=== PATIENT | female | born 1975 | race African-American/Black ===

== ENCOUNTER 2024-01-03 16:07 | Observation (INO) | payer OTHER ==
--- NOTE | 2024-01-03 16:40 | ED ---
General Adult HPI - General Chief complaint: Weakness Stated complaint: Dizziness, Weakness Time Seen by Provider: 01/03/24 16:18 Source: EMS, RN notes reviewed Mode of arrival: EMS - History of Present Illness Initial comments: 48-year-old female with a reported past medical history significant for dysfunctional uterine bleeding and fibroids presenting to the ED with a chief co mplaint of lightheadedness. Patient reports with her history, she states that she thinks she needs a blood transfusion as she typically gets this on a somewhat regular basis secondary to anemia with history of dysfunctional uterine bleeding. States her last period was earlier this month which she reports was heavy. Patient states that she was inside and reports she was standing up when all of a sudden started to feel lightheaded reporting she felt like she was going to pass out. Also at this time onset of a headache which she describes as a pressure of her head. At this time while lying at rest she reports that she feels improved but is still notes a pressure in her head. Denies chest pain or shortness of breath. Denies fever or chills. Denies abdominal pain. Denies changes in bowel or bladder habits. No other complaints at this time. Of note, patient states that she is in a rehab facility for cocaine abuse. States that she snorts and smoked cocaine. Denies IV drug use. - Related Data Home Medications Medication Instructions Recorded Confirmed Ferrous Sulfate [Feosol] 325 mg PO DAILY 01/03/24 01/03/24 Allergies Allergy/AdvReac Type Severity Reaction Status Date / Time haloperidol [From Haldol] AdvReac lock jaw, Verified 01/03/24 19:47 confusion Review of Systems ROS Statement: Those systems with pertinent positive or pertinent negative responses have been documented in the HPI. ROS Other: All systems not noted in ROS Statement are negative. Past Medical History Additional Past Medical History / Comment(s): Anemia Additional Past Surgical History / Comment(s): c section and hernia repair Smoking Status: Current every day smoker Past Alcohol Use History: Occasional Past Drug Use History: Cocaine, Marijuana General Exam General appearance: alert, in no apparent distress Eye exam: Present: normal appearance, PERRL, EOMI ENT exam: Present: TM's normal bilaterally Neck exam: Present: normal inspection Respiratory exam: Present: normal lung sounds bilaterally Cardiovascular Exam: Present: regular rate GI/Abdominal exam: Present: soft, normal bowel sounds. Absent: distended, tende rness, guarding, rebound, rigid Back exam: Present: normal inspection Neurological exam: Present: alert, oriented X3, CN II-XII intact ([id number]-uo-kqig , [id number]-[id number], rapid alternating hand movements intact.) Skin exam: Present: warm, dry Course Vital Signs 01/03/24 01/03/24 16:11 18:42 Temperature 98.5 F Pulse Rate 94 113 H Respiratory 18 18 Rate Blood Pressure 145/97 122/79 O2 Sat by Pulse 100 99 Oximetry Medical Decision Making - Medical Decision Making Was pt. sent in by a medical professional or institution (, PA, BOOM ST[employer] MAN, urgent care, hospital, or senior care...) When possible be specific @ -No Did you speak to anyone other than the patient for history (EMS, parent, family, police, friend...)? What history was obtained from this source @ -No Did you review nursing and triage notes (agree or disagree)? Why? @ -I reviewed and agree with nursing and triage notes Were old charts reviewed (outside hosp., previous admission, EMS record, old EKG, old radiological studies, urgent care reports/EKG's, senior care records)? Report findings @ -No old charts were reviewed Differential Diagnosis (chest pain, altered mental status, abdominal pain women, abdominal pain men, vaginal bleeding, weakness, fever, dyspnea, syncope, headache, dizziness, GI bleed, back pain, seizure, CVA, palpatations, mental health, musculoskeletal)? @ -Differential Weakness: Hypoglycemia, shock, sepsis, hyponatremia, anemia, infection, NC, ETOH, adverse medicine reaction, overdose, stroke, this is not meant to be an all-inclusive list. EKG interpreted by me (3pts min.). @ -EKG interpreted by me showing a sinus rhythm without acute ST-T wave changes at a rate of 90 bpm. TN 172, QRS 372/421. X-rays interpreted by me (1pt min.). @ -Chest x-ray interpreted by me which revealed no evidence of acute finding. CT interpreted by me (1pt min.). @ -CT brain interpreted me which revealed no evidence of acute finding. U/S interpreted by me (1pt. min.). @ -None done What testing was considered but not performed or refused? (CT, X-rays, U/S, labs)? Why? @ -None What meds were considered but not given or refused? Why? @ -None Did you discuss the management of the patient with other professionals (professionals i.e. , PA, [employer] ST[employer] MAN, lab, RT, psych nurse, oncology social worker, window covering sales consultant, teacher, loan workout officer, case mgr)? Give summary @ -Case discussed with Cassie, who accepts admission under [facility]. Was smoking cessation discussed for >3mins.? @ -No Was critical care preformed (if so, how long)? @ -No Were there social determinants of health that impacted care today? How? (Homelessness, low income, unemployed, alcoholism, drug addiction, transportation, low edu. Level, literacy, decrease access to med. care, skilled nursing, rehab)? @ -No Was there de-escalation of care discussed even if they declined (Discuss DNR or withdrawal of care, Hospice)? DNR status @ -No What co-morbidities impacted this encounter? (DM, HTN, Smoking, COPD, CAD, Cancer, CVA, ARF, Chemo, Hep., AIDS, mental health diagnosis, sleep apnea, morbid obesity)? @ -None Was patient admitted / discharged? Hospital course, mention meds given and route, prescriptions, significant lab abnormalities, going to OR and other pertinent info. @ -Admission 48-year-old female with a past medical history of reported dysfunctional uterine bleeding with fibroids requiring hysterectomy to the ED with complaints of lightheadedness. Reports with her history she typically requires blood transfusion secondary to anemia. States today has been experiencing lightheadedness which she reports is consistent with her history of anemia. Laboratory studies reviewed. CBC significant for hemoglobin of 6.5. Chemistry panel unremarkable. Occult blood unremarkable. Patient will be admitted to observation for transfusion with serial hemoglobin. Undiagnosed new problem with uncertain prognosis? @ -No Drug Therapy requiring intensive monitoring for toxicity (Heparin, Nitro, Insulin, Cardizem)? @ -No Were any procedures done? @ -No Diagnosis/symptom? @ -Anemia Acute, or Chronic, or Acute on Chronic? @ -Acute Uncomplicated (without systemic symptoms) or Complicated (systemic symptoms)? @ -Complicated Side effects of treatment? @ -No Exacerbation, Progression, or Severe Exacerbation? @ -No Poses a threat to life or bodily function? How? (Chest pain, USA, NC, pneumonia, PE, COPD, DKA, ARF, appy, cholecystitis, CVA, Diverticulitis, Homicidal, Suicidal, threat to staff... and all critical care pts) @ -Unlikely - Lab Data Result diagrams: 01/03/24 17:37 01/03/24 17:37 Lab Results 01/03/24 01/03/24 01/03/24 Range/Units 17:37 17:37 17:37 WBC 7.5 (3.8-10.6) k/uL RBC 4.47 (3.80-5.40) m/uL Hgb 6.5 L* (11.4-16.0) gm/dL Hct 26.7 L (34.0-46.0) % MCV 59.8 L (80.0-100.0) fL MCH 14.5 L (25.0-35.0) pg MCHC 24.3 L (31.0-37.0) g/dL RDW 22.6 H (11.5-15.5) % Plt Count 301 (150-450) k/uL MPV 6.6 Neutrophils % 61 % Lymphocytes % 25 % Monocytes % 7 % Eosinophils % 4 % Basophils % 1 % Neutrophils # 4.6 (1.3-7.7) k/uL Lymphocytes # 1.8 (1.0-4.8) k/uL Monocytes # 0.5 (0-1.0) k/uL Eosinophils # 0.3 (0-0.7) k/uL Basophils # 0.0 (0-0.2) k/uL Hypochromasia Marked Poikilocytosis Slight Anisocytosis Moderate Microcytosis Marked PT 10.0 (10.0-12.5) sec INR 0.9 (<1.2) APTT 24.6 (22.0-30.0) sec Sodium 139 (137-145) mmol/L Potassium 4.3 (3.5-5.1) mmol/L Chloride 107 (98-107) mmol/L Carbon Dioxide 25 (22-30) mmol/L Anion Gap 7 mmol/L BUN 9 (7-17) mg/dL Creatinine 0.56 (0.52-1.04) mg/dL Est GFR (CKD-EPI)AfAm >90 (>60 ml/min/1.73 sqM) Est GFR (CKD-EPI)NonAf >90 (>60 ml/min/1.73 sqM) Glucose 99 (74-99) mg/dL Calcium 9.1 (8.4-10.2) mg/dL Magnesium 2.0 (1.6-2.3) mg/dL Total Bilirubin 0.3 (0.2-1.3) mg/dL AST 38 H (14-36) U/L ALT 20 (4-34) U/L Alkaline Phosphatase 78 (38-126) U/L Troponin I (0.000-0.034) ng/mL Total Protein 6.8 (6.3-8.2) g/dL Albumin 4.0 (3.5-5.0) g/dL Stool Occult Blood (Negative) Blood Type Blood Type Confirm Blood Type Recheck Bld Type Recheck Status Antibody Screen Direct Antiglob Test Crossmatch Spec Expiration Date 01/03/24 01/03/24 01/03/24 Range/Units 17:37 17:37 18:41 WBC (3.8-10.6) k/uL RBC (3.80-5.40) m/uL Hgb (11.4-16.0) gm/dL Hct (34.0-46.0) % MCV (80.0-100.0) fL MCH (25.0-35.0) pg MCHC (31.0-37.0) g/dL RDW (11.5-15.5) % Plt Count (150-450) k/uL MPV Neutrophils % % Lymphocytes % % Monocytes % % Eosinophils % % Basophils % % Neutrophils # (1.3-7.7) k/uL Lymphocytes # (1.0-4.8) k/uL Monocytes # (0-1.0) k/uL Eosinophils # (0-0.7) k/uL Basophils # (0-0.2) k/uL Hypochromasia Poikilocytosis Anisocytosis Microcytosis PT (10.0-12.5) sec INR (<1.2) APTT (22.0-30.0) sec Sodium (137-145) mmol/L Potassium (3.5-5.1) mmol/L Chloride (98-107) mmol/L Carbon Dioxide (22-30) mmol/L Anion Gap mmol/L BUN (7-17) mg/dL Creatinine (0.52-1.04) mg/dL Est GFR (CKD-EPI)AfAm (>60 ml/min/1.73 sqM) Est GFR (CKD-EPI)NonAf (>60 ml/min/1.73 sqM) Glucose (74-99) mg/dL Calcium (8.4-10.2) mg/dL Magnesium (1.6-2.3) mg/dL Total Bilirubin (0.2-1.3) mg/dL AST (14-36) U/L ALT (4-34) U/L Alkaline Phosphatase (38-126) U/L Troponin I 0.016 (0.000-0.034) ng/mL Total Protein (6.3-8.2) g/dL Albumin (3.5-5.0) g/dL Stool Occult Blood (Negative) Blood Type O Positive Blood Type Confirm O Positive Blood Type Recheck No Previous Record Bld Type Recheck Status CABO Indicated Antibody Screen POSITIVE Direct Antiglob Test Positive Crossmatch See Detail Spec Expiration Date 01/06/2024 - 234001/03/24 Range/Units 18:41 WBC (3.8-10.6) k/uL RBC (3.80-5.40) m/uL Hgb (11.4-16.0) gm/dL Hct (34.0-46.0) % MCV (80.0-100.0) fL MCH (25.0-35.0) pg MCHC (31.0-37.0) g/dL RDW (11.5-15.5) % Plt Count (150-450) k/uL MPV Neutrophils % % Lymphocytes % % Monocytes % % Eosinophils % % Basophils % % Neutrophils # (1.3-7.7) k/uL Lymphocytes # (1.0-4.8) k/uL Monocytes # (0-1.0) k/uL Eosinophils # (0-0.7) k/uL Basophils # (0-0.2) k/uL Hypochromasia Poikilocytosis Anisocytosis Microcytosis PT (10.0-12.5) sec INR (<1.2) APTT (22.0-30.0) sec Sodium (137-145) mmol/L Potassium (3.5-5.1) mmol/L Chloride (98-107) mmol/L Carbon Dioxide (22-30) mmol/L Anion Gap mmol/L BUN (7-17) mg/dL Creatinine (0.52-1.04) mg/dL Est GFR (CKD-EPI)AfAm (>60 ml/min/1.73 sqM) Est GFR (CKD-EPI)NonAf (>60 ml/min/1.73 sqM) Glucose (74-99) mg/dL Calcium (8.4-10.2) mg/dL Magnesium (1.6-2.3) mg/dL Total Bilirubin (0.2-1.3) mg/dL AST (14-36) U/L ALT (4-34) U/L Alkaline Phosphatase (38-126) U/L Troponin I (0.000-0.034) ng/mL Total Protein (6.3-8.2) g/dL Albumin (3.5-5.0) g/dL Stool Occult Blood Negative (Negative) Blood Type Blood Type Confirm Blood Type Recheck Bld Type Recheck Status Antibody Screen Direct Antiglob Test Crossmatch Spec Expiration Date Disposition Clinical Impression: Anemia Disposition: ADMITTED IP TO THIS [facility] Condition: Good Instructions (If sedation given, give patient instructions): Anemia (ED) Additional Instructions: Please return to the Emergency Department if symptoms worsen or any other concerns. Please follow-up with your primary care provider. Is patient prescribed a controlled substance at d/c from ED?: No Referrals: None,Stated [Primary Care Provider] - 1-2 days Time of Disposition: 21:03
--- NOTE | 2024-01-03 17:08 | XR ---
EXAMINATION TYPE: XR chest 2V DATE OF EXAM: 01/03/2024 5:04 PM CLINICAL INDICATION:Female, 48 years old with history of Chest Pain; [facility] COMPARISON: None TECHNIQUE: XR chest 2V Frontal and lateral views of the chest. FINDINGS: Lungs/Pleura: There is no evidence of pleural effusion, focal consolidation, or pneumothorax. Pulmonary vascularity: Unremarkable. Heart/mediastinum: Cardiomediastinal silhouette is unremarkable. Musculoskeletal: No acute osseous pathology. IMPRESSION: No acute cardiopulmonary disease/process.
[2024-01-03 17:52] LABS: ALT 20 U/L (4-34); AST 38 U/L (14-36); African American GFR (CKD) >90 (>60 ml/min/1.73 sqM); Alkaline Phosphatase 78 U/L (38-126); Anion Gap 7 mmol/L; Blood Urea Nitrogen 9 mg/dL (7-17); Calcium 9.1 mg/dL (8.4-10.2); Carbon Dioxide 25 mmol/L (22-30); Chloride 107 mmol/L (98-107); Glucose 99 mg/dL (74-99); Non-African American GFR(CKD) >90 (>60 ml/min/1.73 sqM); Potassium 4.3 mmol/L (3.5-5.1); Sodium 139 mmol/L (137-145); Total Bilirubin 0.3 mg/dL (0.2-1.3); Total Protein 6.8 g/dL (6.3-8.2)
[2024-01-03 17:55] LABS: INR 0.9 (<1.2); Partial Thromboplastin Time 24.6 sec (22.0-30.0)
--- NOTE | 2024-01-03 18:07 | CT ---
EXAMINATION TYPE: CT brain wo con CT DLP: 1072.4 mGycm, Automated exposure control for dose reduction was used. DATE OF EXAM: 01/03/2024 5:57 PM COMPARISON: None. CLINICAL INDICATION:Female, 48 years old with history of weakness/burciaga, TECHNIQUE: Brain: Axial CT images of the brain were obtained with coronal and sagittal reformats created and rev iewed. Contrast used: None. Oral contrast used: None. FINDINGS: Brain: Extra-axial spaces: No abnormal extra-axial fluid collections. Ventricular system: Within normal limits Cerebral parenchyma: No acute intraparenchymal hemorrhage or mass effect. The velez-white junction is well differentiated. Cerebellum: Unremarkable. Mass effect: No evidence of midline shift. Intracranial vasculature: unremarkable Soft tissues: Normal. Calvarium/osseous structures: No depressed skull fracture. Paranasal sinuses and mastoid air cells: Mild scattered paranasal sinus disease. Visualized orbits: Orbital contents are intact. IMPRESSION: No acute intracranial process.
[2024-01-03 18:25] LABS: Anisocytosis Moderate; Basophils % (A) 1 %; Eosinophils # (A) 0.3 k/uL (0-0.7); Eosinophils % (A) 4 %; HCT 26.7 % (34.0-46.0); Hypochromasia Marked; Lymphocytes # (A) 1.8 k/uL (1.0-4.8); Lymphocytes % (A) 25 %; MCH 14.5 pg (25.0-35.0); MCHC 24.3 g/dL (31.0-37.0); MCV 59.8 fL (80.0-100.0); Mean Platelet Volume 6.6; Microcytosis Marked; Monocytes # (A) 0.5 k/uL (0-1.0); Monocytes % (A) 7 %; Neutrophils # (A) 4.6 k/uL (1.3-7.7); Neutrophils % (A) 61 %; Platelet Count 301 k/uL (150-450); Poikilocytosis Slight; RBC 4.47 m/uL (3.80-5.40); RDW 22.6 % (11.5-15.5); WBC 7.5 k/uL (3.8-10.6)
[2024-01-03 18:29] LABS: HGB 6.5 gm/dL (11.4-16.0)
[2024-01-03] MEDS: SODIUM CHLORIDE 0.9% 500 ML 500 ML IV STA (18:40)
[2024-01-03] MEDS ORDERED: NALOXONE 0.4 MG/ML 1 ML VIAL IV PRN (21:03)
[2024-01-03] MEDS ORDERED: ACETAMINOPHEN TAB 325 MG TAB PO PRN (21:03)
[2024-01-03] MEDS: SODIUM CHLORIDE 0.9% 1,000 ML IV SCH (21:37)
[2024-01-03] MEDS ORDERED: ONDANSETRON 4 MG/2 ML VIAL IVP PRN (23:15)
[2024-01-04 03:59] LABS: Anisocytosis Moderate; Basophils # (A) 0.1 k/uL (0-0.2); Basophils % (A) 1 %; Eosinophils # (A) 0.3 k/uL (0-0.7); Eosinophils % (A) 4 %; HCT 27.5 % (34.0-46.0); Hypochromasia Marked; Lymphocytes # (A) 1.9 k/uL (1.0-4.8); Lymphocytes % (A) 34 %; MCH 14.3 pg (25.0-35.0); MCHC 23.6 g/dL (31.0-37.0); MCV 60.7 fL (80.0-100.0); Mean Platelet Volume 7.2; Microcytosis Marked; Monocytes # (A) 0.4 k/uL (0-1.0); Monocytes % (A) 7 %; Neutrophils % (A) 52 %; Platelet Count 283 k/uL (150-450); Poikilocytosis Slight; RBC 4.53 m/uL (3.80-5.40); RDW 22.7 % (11.5-15.5); WBC 5.7 k/uL (3.8-10.6)
[2024-01-04 05:12] LABS: HGB 6.5 gm/dL (11.4-16.0)
[2024-01-04 05:53] LABS: Ovalocytes Present; RBC Fragments Present; Target Cells Present; Tear Drop Cells Present
[2024-01-04 07:30] VITALS: RESP 18
--- NOTE | 2024-01-04 11:07 | P.HPIM ---
History of Present Illness Patient is a pleasant female came in with complaints of dizziness and near syncope found to have hemoglobin of 6.5 unable to get prior blood transfusion at that time because of presence of multiple antibodies. Awaiting blood from [place]. Patient has menorrhagia patient still has menses and had a 12-day. With heavy bleeding. Patient denies any GI bleed. Patient has severe microcytosis. Patient is from [facility] for cocaine use and did not use cocaine for last 13 days. Denies any IV drug use. Patient does not have any vaginal bleeding today REVIEW OF SYSTEMS: CONSTITUTIONAL: No fever, no malaise, no fatigue. HEENT: No recent visual problems or hearing problems. Denied any sore throat. CARDIOVASCULAR: No chest pain, orthopnea, PND, no palpitations, no syncope. PULMONARY: No shortness of breath, no cough, no hemoptysis. GASTROINTESTINAL: No diarrhea, no nausea, no vomiting, no abdominal pain. NEUROLOGICAL: No headaches, no weakness, no numbness. HEMATOLOGICAL: Denies any bleeding or petechiae. GENITOURINARY: Denies any burning micturition, frequency, or urgency. MUSCULOSKELETAL/RHEUMATOLOGICAL: Denies any joint pain, swelling, or any muscle pain. ENDOCRINE: Denies any polyuria or polydipsia. The rest of the 14-point review of systems is negative. PHYSICAL EXAMINATION: GENERAL: The patient is alert and oriented x3, not in any acute distress. Well developed, well nourished. HEENT: Pupils are round and equally reacting to light. EOMI. No scleral icterus. does have conjunctival pallor. Normocephalic, atraumatic. No pharyngeal erythema. No thyromegaly. CARDIOVASCULAR: S1 and S2 present. No murmurs, rubs, or gallops. PULMONARY: Chest is clear to auscultation, no wheezing or crackles. ABDOMEN: Soft, nontender, nondistended, normoactive bowel sounds. No palpable or ganomegaly. MUSCULOSKELETAL: No joint swelling or deformity. EXTREMITIES: No cyanosis, clubbing, or pedal edema. NEUROLOGICAL: Gross neurological examination did not reveal any focal deficits. SKIN: No rashes. Assessment and plan -Severe symptomatic anemia: Blood transfusion and patient ferritin is probably extremely low will order ferritin but will transfuse ferrous gluconate patient will need more transfusions patient has oral iron supplementation but does not take them regularly on regular basis. Patient will need to follow-up with oncology tomorrow a.m. transfusions and gynecology for dysfunctional uterine bleeding and probably will need oral contraceptive pills Dizziness: Secondary to severe anemia -Dysfunctional uterine bleeding cocaine use history no withdrawals at this time Past Medical History Additional Past Medical History / Comment(s): Anemia Additional Past Surgical History / Comment(s): c section and hernia repair Smoking Status: Current every day smoker Past Alcohol Use History: Occasional Past Drug Use History: Cocaine, Marijuana Medications and Allergies Home Medications Medication Instructions Recorded Confirmed Type Ferrous Sulfate [Feosol] 325 mg PO DAILY 01/03/24 01/03/24 History Allergies Allergy/AdvReac Type Severity Reaction Status Date / Time haloperidol [From Haldol] AdvReac lock jaw, Verified 01/03/24 19:47 confusion Physical Exam Vitals: Vital Signs Temp Pulse Resp BP Pulse Ox 01/04/24 11:00 95 18 135/80 97 01/04/24 10:00 93 18 137/89 100 01/04/24 07:28 94 18 138/91 99 01/04/24 06:00 98 20 142/96 98 01/04/24 04:00 94 18 146/103 99 01/04/24 03:50 94 20 146/103 98 01/04/24 02:46 101 H 18 137/102 100 01/04/24 00:00 109 H 19 154/97 99 01/03/24 22:00 111 H 20 150/97 98 01/03/24 21:00 105 H 16 163/98 98 01/03/24 18:42 113 H 18 122/79 99 01/03/24 16:11 98.5 F 94 18 145/97 100 Intake and Output 01/03/24 01/04/24 01/04/24 22:59 06:59 14:59 Other: Weight 55.338 kg Results CBC & Chem 7: 01/04/24 02:45 01/03/24 17:37 Labs: Abnormal Lab Results - Last 24 Hours (Table) 01/03/24 01/03/24 01/03/24 Range/Units 17:37 17:37 18:41 Hgb 6.5 L* (11.4-16.0) gm/dL Hct 26.7 L (34.0-46.0) % MCV 59.8 L (80.0-100.0) fL MCH 14.5 L (25.0-35.0) pg MCHC 24.3 L (31.0-37.0) g/dL RDW 22.6 H (11.5-15.5) % AST 38 H (14-36) U/L Crossmatch See Detail Blood Bank Comment 01/03/24 01/04/24 Range/Units 20:52 02:45 Hgb 6.5 L* (11.4-16.0) gm/dL Hct 27.5 L (34.0-46.0) % MCV 60.7 L (80.0-100.0) fL MCH 14.3 L (25.0-35.0) pg MCHC 23.6 L (31.0-37.0) g/dL RDW 22.7 H (11.5-15.5) % AST (14-36) U/L Crossmatch See Detail Blood Bank Comment Sent to [facility]
--- NOTE | 2024-01-04 11:08 | P.DS ---
Providers Date of admission: 01/03/24 21:04 Attending physician: Jess Rizo Consults: 01/04/24 11:01 Consult Physician Stat Consulting Provider: Jaclyn Valencia Consult Reason/Comments: Vagnial bleeding and low hgb Do you want consulting provider notified?: Yes Primary care physician: Stated None Hospital Course: Patient is a pleasant female came in with complaints of dizziness and near syncope found to have hemoglobin of 6.5 unable to get prior blood transfusion at that time because of presence of multiple antibodies. Awaiting blood from [facility]. Patient has menorrhagia patient still has menses and had a 12-day. With heavy bleeding. Patient denies any GI bleed. Patient has severe microcytosis. Patient is from [facility] for cocaine use and did not use cocaine for last 13 days. Denies any IV drug use. Patient does not have any vaginal bleeding today PHYSICAL EXAMINATION: GENERAL: The patient is alert and oriented x3, not in any acute distress. Well developed, well nourished. HEENT: Pupils are round and equally reacting to light. EOMI. No scleral icterus. does have conjunctival pallor. Normocephalic, atraumatic. No pharyngeal erythema. No thyromegaly. CARDIOVASCULAR: S1 and S2 present. No murmurs, rubs, or gallops. PULMONARY: Chest is clear to auscultation, no wheezing or crackles. ABDOMEN: Soft, nontender, nondistended, normoactive bowel sounds. No palpable organomegaly. MUSCULOSKELETAL: No joint swelling or deformity. EXTREMITIES: No cyanosis, clubbing, or pedal edema. NEUROLOGICAL: Gross neurological examination did not reveal any focal deficits. SKIN: No rashes. Assessment and plan -Severe symptomatic anemia: Blood transfusion and patient ferritin is probably extremely low will order ferritin but will transfuse ferrous gluconate patient will need more transfusions patient has oral iron supplementation but does not take them regularly on regular basis. Patient will need to follow-up with oncology tomorrow a.m. transfusions and gynecology for dysfunctional uterine bleeding and probably will need oral contraceptive pills Dizziness: Secondary to severe anemia -Dysfunctional uterine bleeding cocaine use history no withdrawals at this time Patient Condition at Discharge: Good Plan - Discharge Summary New Discharge Prescriptions: No Action Ferrous Sulfate [Feosol] 325 mg PO DAILY Discharge Medication List Ferrous Sulfate [Feosol] 325 mg PO DAILY 01/03/24 [History] Follow up Appointment(s)/Referral(s): Jt Sanders [STAFF PHYSICIAN] - 1 Week Lois Bolivar MD [STAFF PHYSICIAN] - 1 Week Jaclyn Valencia DO [Doctor of Osteopathic Medicine] - 1 Week Patient Instructions/Handouts: Anemia (ED) Activity/Diet/Wound Care/Special Instructions: Please return to the Emergency Department if symptoms worsen or any other concer ns. Please follow-up with your primary care provider. Discharge Disposition: HOME SELF-CARE
[2024-01-04] MEDS: SODIUM FERRIC GLUCONAT-SUCROSE 125 MG in SODIUM CHLORIDE 0.9% 100 ML IVPB SCH (12:35)
[2024-01-05 02:21] VITALS: BP 155/95; PULSE 98; TEMP 98.1
== END 2024-01-04 22:50 | disposition home or self-care (01) ==
LOC: EC 16:07 → 6NMEDSUR 21:04
PROVIDERS: ADMIT Internal Medicine; ATTEND Internal Medicine
DX: D62 Acute posthemorrhagic anemia (principal); N93.9 Abnormal uterine and vaginal bleeding, unspecified; F14.11 Cocaine abuse, in remission; Z90.710 Acquired absence of both cervix and uterus
CPT/HCPCS: 36430; 96365; 99285; 36415; 93005; 86900; 86901; 86902; 80053; 82728; 83735; 84484; 85025 ×2; 85610; 85730; 86850; 86920; 86870; 86880; 82272; 71046; 70450; G0378 ×2; P9016; J2916

== ENCOUNTER 2024-01-07 14:02 | Emergency (ER) | payer OTHER ==
[2024-01-07] MEDS: KETOROLAC 15 MG/ML 1 ML VIAL IVP STA (16:14)
[2024-01-07] MEDS: ACETAMINOPHEN IV (For NPO) 1,000 MG in EMPTY BAG 1 BAG IVPB STA (16:18)
[2024-01-07 16:22] LABS: Anisocytosis Marked; Basophils # (A) 0.1 k/uL (0-0.2); Basophils % (A) 1 %; Eosinophils # (A) 0.3 k/uL (0-0.7); Eosinophils % (A) 5 %; HCT 30.2 % (34.0-46.0); Hypochromasia Marked; Lymphocytes # (A) 1.8 k/uL (1.0-4.8); Lymphocytes % (A) 28 %; MCH 16.7 pg (25.0-35.0); MCHC 26.5 g/dL (31.0-37.0); MCV 62.9 fL (80.0-100.0); Mean Platelet Volume 6.3; Microcytosis Marked; Monocytes # (A) 0.5 k/uL (0-1.0); Monocytes % (A) 7 %; Neutrophils # (A) 3.8 k/uL (1.3-7.7); Neutrophils % (A) 58 %; Platelet Count 214 k/uL (150-450); Poikilocytosis Marked; WBC 6.5 k/uL (3.8-10.6)
[2024-01-07 16:25] LABS: ALT 23 U/L (4-34); AST 38 U/L (14-36); African American GFR (CKD) >90 (>60 ml/min/1.73 sqM); Albumin 4.2 g/dL (3.5-5.0); Alkaline Phosphatase 78 U/L (38-126); Anion Gap 6 mmol/L; Blood Urea Nitrogen 10 mg/dL (7-17); Calcium 9.6 mg/dL (8.4-10.2); Carbon Dioxide 25 mmol/L (22-30); Chloride 106 mmol/L (98-107); Glucose 97 mg/dL (74-99); Non-African American GFR(CKD) >90 (>60 ml/min/1.73 sqM); Potassium 4.2 mmol/L (3.5-5.1); Sodium 137 mmol/L (137-145); Total Bilirubin 0.4 mg/dL (0.2-1.3); Total Protein 7.1 g/dL (6.3-8.2)
--- NOTE | 2024-01-07 16:39 | ED ---
General Adult HPI - General Chief complaint: Vaginal Bleeding Stated complaint: Vaginal bleeding Time Seen by Provider: 01/07/24 14:31 Source: patient, EMS, RN notes reviewed Mode of arrival: EMS Limitations: no limitations - History of Present Illness Initial comments: 48-year-old female presents to the emergency department for evaluation of heavy vaginal bleeding and lower abdominal pain. Patient states that she was recently here for a blood transfusion. She states that yesterday she started having vaginal bleeding. She states that at that time she was going through 1 pad an hour. Patient does report that the bleeding has slowed at this time. She reports pain in the lower abdomen/pelvic region. She did see Dr. Valencia yesterday and was advised to follow-up with [facility] Onc specialist she is awaiting an appointment with. she notes that she had a period at the beginning of the month. - Related Data Home Medications Medication Instructions Recorded Confirmed Ferrous Sulfate [Feosol] 325 mg PO DAILY 01/03/24 01/03/24 Previous Rx's Medication Instructions Recorded Acetaminophen Oral Susp [Tylenol] 640 mg PO Q4-6H #150 ml 01/07/24 Ibuprofen Oral Susp [Motrin Oral 400 mg PO Q8HR #150 ml 01/07/24 Susp] Allergies Allergy/AdvReac Type Severity Reaction Status Date / Time haloperidol [From Haldol] AdvReac lock jaw, Verified 01/07/24 14:20 confusion Review of Systems ROS Statement: Those systems with pertinent positive or pertinent negative responses have been documented in the HPI. ROS Other: All systems not noted in ROS Statement are negative. Past Medical History Additional Past Medical History / Comment(s): Anemia, endmetrosis History of Any Multi-Drug Resistant Organisms: None Reported Past Surgical History: Section Additional Past Surgical History / Comment(s): c section and hernia repair Past Psychological History: Anxiety, Bipolar Smoking Status: Current every day smoker Past Alcohol Use History: Occasional Past Drug Use History: Cocaine, Marijuana General Exam Limitations: no limitations General appearance: alert, in no apparent distress Head exam: Present: atraumatic, normocephalic, normal inspection Eye exam: Present: normal appearance, PERRL, EOMI. Absent: scleral icterus, conjunctival injection, periorbital swelling ENT exam: Present: normal exam, mucous membranes moist Neck exam: Present: normal inspection. Absent: tenderness, meningismus, lymphadenopathy Respiratory exam: Present: normal lung sounds bilaterally. Absent: respiratory distress, wheezes, rales, rhonchi, stridor Cardiovascular Exam: Present: regular rate, normal rhythm, normal heart sounds. Absent: systolic murmur, diastolic murmur, rubs, gallop, clicks GI/Abdominal exam: Present: soft, normal bowel sounds. Absent: distended, tenderness, guarding, rebound, rigid Extremities exam: Present: normal inspection, full ROM, normal capillary refill. Absent: tenderness, pedal edema, joint swelling, calf tenderness Back exam: Present: normal inspection Neurological exam: Present: alert, oriented X3 Psychiatric exam: Present: normal affect, normal mood Skin exam: Present: warm, dry, intact, normal color. Absent: rash Course Vital Signs 01/07/24 01/07/24 01/07/24 14:11 16:19 17:50 Temperature 98.2 F Pulse Rate 98 86 93 Respiratory 20 18 16 Rate Blood Pressure 126/78 146/97 122/78 O2 Sat by Pulse 100 99 100 Oximetry 01/07/24 19:07 Temperature 98.4 F Pulse Rate 86 Respiratory 16 Rate Blood Pressure 137/86 O2 Sat by Pulse 100 Oximetry Medical Decision Making - Medical Decision Making Was pt. sent in by a medical professional or institution (, TC, PL SQL PROGRAMMER, urgent care, hospital, or usp...) When possible be specific @ -No Did you speak to anyone other than the patient for history (EMS, parent, family, police, friend...)? What history was obtained from this source @ -No Did you review nursing and triage notes (agree or disagree)? Why? @ -I reviewed and agree with nursing and triage notes Were old charts reviewed (outside hosp., previous admission, EMS record, old EKG, old radiological studies, urgent care reports/EKG's, usp records)? Report findings @ -No old charts were reviewed Differential Diagnosis (chest pain, altered mental status, abdominal pain women, abdominal pain men, vaginal bleeding, weakness, fever, dyspnea, syncope, headache, dizziness, GI bleed, back pain, seizure, CVA, palpatations, mental health, musculoskeletal)? @ -Differential Vaginal Bleeding: Spontaneous , threatened , molar , ectopic , bloody show, incompetent cervix, abruptioplacenta, placenta previa, uterine rupture, dysfunctional uterine bleeding, hemorrhage, uterine fibroids, this is not meant to be an all-inclusive list. EKG interpreted by me (3pts min.). @ -None X-rays interpreted by me (1pt min.). @ -None done CT interpreted by me (1pt min.). @ -None done U/S interpreted by me (1pt. min.). @ -Ultrasound of the pelvis shows multiple fibroids within the uterus, complex cystic areas on the left ovary What testing was considered but not performed or refused? (CT, X-rays, U/S, labs)? Why? @ -None What meds were considered but not given or refused? Why? @ -None Did you discuss the management of the patient with other professionals (professionals i.e. , PA, PL SQL PROGRAMMER, lab, RT, psych nurse, vp digital marketing social media and crm, electronic equipment trades worker, teacher, police officer, clinical case manager)? Give summary @ -No Was smoking cessation discussed for >3mins.? @ -No Was critical care preformed (if so, how long)? @ -No Were there social determinants of health that impacted care today? How? (Homelessness, low income, unemployed, alcoholism, drug addiction, transportat ion, low edu. Level, literacy, decrease access to med. care, snf, rehab)? @ -No Was there de-escalation of care discussed even if they declined (Discuss DNR or withdrawal of care, Hospice)? DNR status @ -No What co-morbidities impacted this encounter? (DM, HTN, Smoking, COPD, CAD, Cancer, CVA, ARF, Chemo, Hep., AIDS, mental health diagnosis, sleep apnea, morbid obesity)? @ -None Was patient admitted / discharged? Hospital course, mention meds given and route, prescriptions, significant lab abnormalities, going to OR and other pertinent info. @ -Discharge. Patient presented to the emergency department for evaluation of vaginal bleeding. Patient states that this started yesterday. She did see Dr. Valencia for this. She is to be following with gynecologic oncology soon but she has not been set up with an appointment yet. Laboratory studies were obtained which shows anemia with a hemoglobin of 8.0 improved from prior of 6.5. UA shows 8 RBCs, no evidence of infectious process. Underwent pelvic ultrasound which shows multiple uterine fibroids and complex region of the left ovary. Patient was provided IV Toradol and Ofirmev which is significantly improved her pain. Patient's laboratory studies are stable, advised that she should follow- up with the gynecology orthopedic specialist as recommended by her HAND CANDY MOLDER. She is understanding and agreeable with this plan. Patient stable at time of discharge. Case discussed with Dr. Leon. Undiagnosed new problem with uncertain prognosis? @ -No Drug Therapy requiring intensive monitoring for toxicity (Heparin, Nitro, Insulin, Cardizem)? @ -No Were any procedures done? @ -No Diagnosis/symptom? @ -Anemia, uterine fibroids Acute, or Chronic, or Acute on Chronic? @ -acute Uncomplicated (without systemic symptoms) or Complicated (systemic symptoms)? @ -uncomplicated Side effects of treatment? @ -No Exacerbation, Progression, or Severe Exacerbation? @ -No Poses a threat to life or bodily function? How? (Chest pain, [place], [place], pneumonia, PE, COPD, DKA, ARF, appy, cholecystitis, CVA, Diverticulitis, Homicidal, Suicidal, threat to staff... and all critical care pts) @ -No - Lab Data Result diagrams: 01/07/24 15:43 01/07/24 15:43 Lab Results 01/07/24 01/07/24 01/07/24 Range/Units 15:43 15:43 15:43 WBC 6.5 (3.8-10.6) k/uL RBC 4.80 (3.80-5.40) m/uL Hgb 8.0 L D (11.4-16.0) gm/dL Hct 30.2 L (34.0-46.0) % MCV 62.9 L (80.0-100.0) fL MCH 16.7 L (25.0-35.0) pg MCHC 26.5 L (31.0-37.0) g/dL RDW 29.0 H (11.5-15.5) % Plt Count 214 (150-450) k/uL MPV 6.3 Neutrophils % 58 % Lymphocytes % 28 % Monocytes % 7 % Eosinophils % 5 % Basophils % 1 % Neutrophils # 3.8 (1.3-7.7) k/uL Lymphocytes # 1.8 (1.0-4.8) k/uL Monocytes # 0.5 (0-1.0) k/uL Eosinophils # 0.3 (0-0.7) k/uL Basophils # 0.1 (0-0.2) k/uL Hypochromasia Marked Poikilocytosis Marked Anisocytosis Marked Microcytosis Marked PT 10.0 (10.0-12.5) sec INR 0.9 (<1.2) APTT 23.9 (22.0-30.0) sec Sodium (137-145) mmol/L Potassium (3.5-5.1) mmol/L Chloride (98-107) mmol/L Carbon Dioxide (22-30) mmol/L Anion Gap mmol/L BUN (7-17) mg/dL Creatinine (0.52-1.04) mg/dL Est GFR (CKD-EPI)AfAm (>60 ml/min/1.73 sqM) Est GFR (CKD-EPI)NonAf (>60 ml/min/1.73 sqM) Glucose (74-99) mg/dL Calcium (8.4-10.2) mg/dL Total Bilirubin (0.2-1.3) mg/dL AST (14-36) U/L ALT (4-34) U/L Alkaline Phosphatase (38-126) U/L Total Protein (6.3-8.2) g/dL Albumin (3.5-5.0) g/dL Urine Color Colorless Urine Appearance Clear (Clear) Urine pH 6.5 (5.0-8.0) Ur Specific Grover 1.006 (1.001-1.035) Urine Protein Negative (Negative) Urine Glucose (UA) Negative (Negative) Urine Ketones Negative (Negative) Urine Blood Moderate H (Negative) Urine Nitrite Negative (Negative) Urine Bilirubin Negative (Negative) Urine Urobilinogen <2.0 (<2.0) mg/dL Ur Leukocyte Esterase Negative (Negative) Urine RBC 8 H (0-5) /hpf Urine WBC 1 (0-5) /hpf Ur Squamous Epith Cells <1 (0-4) /hpf Urine Mucus Rare H (None) /hpf Urine HCG, Qual (Not Detectd) Blood Type Blood Type Recheck Bld Type Recheck Status Antibody Screen Antibody Identification Direct Antiglob Test Spec Expiration Date 01/07/24 01/07/24 01/07/24 Range/Units 15:43 15:43 15:45 WBC (3.8-10.6) k/uL RBC (3.80-5.40) m/uL Hgb (11.4-16.0) gm/dL Hct (34.0-46.0) % MCV (80.0-100.0) fL MCH (25.0-35.0) pg MCHC (31.0-37.0) g/dL RDW (11.5-15.5) % Plt Count (150-450) k/uL MPV Neutrophils % % Lymphocytes % % Monocytes % % Eosinophils % % Basophils % % Neutrophils # (1.3-7.7) k/uL Lymphocytes # (1.0-4.8) k/uL Monocytes # (0-1.0) k/uL Eosinophils # (0-0.7) k/uL Basophils # (0-0.2) k/uL Hypochromasia Poikilocytosis Anisocytosis Microcytosis PT (10.0-12.5) sec INR (<1.2) APTT (22.0-30.0) sec Sodium 137 (137-145) mmol/L Potassium 4.2 (3.5-5.1) mmol/L Chloride 106 (98-107) mmol/L Carbon Dioxide 25 (22-30) mmol/L Anion Gap 6 mmol/L BUN 10 (7-17) mg/dL Creatinine 0.56 (0.52-1.04) mg/dL Est GFR (CKD-EPI)AfAm >90 (>60 ml/min/1.73 sqM) Est GFR (CKD-EPI)NonAf >90 (>60 ml/min/1.73 sqM) Glucose 97 (74-99) mg/dL Calcium 9.6 (8.4-10.2) mg/dL Total Bilirubin 0.4 (0.2-1.3) mg/dL AST 38 H (14-36) U/L ALT 23 (4-34) U/L Alkaline Phosphatase 78 (38-126) U/L Total Protein 7.1 (6.3-8.2) g/dL Albumin 4.2 (3.5-5.0) g/dL Urine Color Urine Appearance (Clear) Urine pH (5.0-8.0) Ur Specific Grover (1.001-1.035) Urine Protein (Negative) Urine Glucose (UA) (Negative) Urine Ketones (Negative) Urine Blood (Negative) Urine Nitrite (Negative) Urine Bilirubin (Negative) Urine Urobilinogen (<2.0) mg/dL Ur Leukocyte Esterase (Negative) Urine RBC (0-5) /hpf Urine WBC (0-5) /hpf Ur Squamous Epith Cells (0-4) /hpf Urine Mucus (None) /hpf Urine HCG, Qual Not Detected (Not Detectd) Blood Type O Positive Blood Type Recheck O Pos Bld Type Recheck Status No Antibody Screen POSITIVE Antibody Identification Anti-K Direct Antiglob Test Negative Spec Expiration Date 01/10/20242344 Disposition Clinical Impression: Uterine fibroid, Ovarian cyst Disposition: HOME SELF-CARE Condition: Stable Instructions (If sedation given, give patient instructions): Dysmenorrhea (ED) Additional Instructions: Please follow up with [facility] Super[facility]-Onc and Dr. Valencia. Return to the emergency department for new or worsening symptoms. Prescriptions: Ibuprofen Oral Susp [Motrin Oral Susp] 400 mg PO Q8HR #150 ml Acetaminophen Oral Susp [Tylenol] 640 mg PO Q4-6H #150 ml Is patient prescribed a controlled substance at d/c from ED?: No Referrals: None,Stated [Primary Care Provider] - 1-2 days
[2024-01-07 16:41] LABS: INR 0.9 (<1.2); Partial Thromboplastin Time 23.9 sec (22.0-30.0)
--- NOTE | 2024-01-07 16:51 | US ---
EXAMINATION TYPE: US pelvic complete DATE OF EXAM: 01/07/2024 COMPARISON: NONE CLINICAL INDICATION: Female, 48 years old with history of pain, bleeding; AUB x 3 years; Clotting x t jori TECHNIQUE: . Transabdominal sonographic images of the pelvis were acquired. Transvaginal sonographi c images were not needed Date of LMP: AUB EXAM MEASUREMENTS: Uterus: 12.1 x 8.7 x cm Endometrial Stripe: 0.3 cm Right Ovary: 3.5 x 1.8 x 2.3 cm Left Ovary: 6.8 x 5.3 x 6.8 cm 1. Uterus: Multifibrotic uterus, largest posterior fundus = 5.2 x 4.5 x 5.3 cm 2. Endometrium: ? Inaccurate due to pathology 3. Right Ovary: WNL 4. Left Ovary: Complex cystic areas 5. Bilateral Adnexa: wnl 6. Posterior cul-de-sac: wnl IMPRESSION: 1. Uterine fibroids. 2. Complex left ovarian cysts. Additional workup is recommended.
[2024-01-07 17:33] LABS: RBC,Urine 8 /hpf (0-5); Squamous Epithelial Cell,Urine <1 /hpf (0-4); WBC,Urine 1 /hpf (0-5)
[2024-01-07 17:41] LABS: Appearance,Urine Clear (Clear); Bilirubin,Urine Negative (Negative); Blood,Urine Moderate (Negative); Color,Urine Colorless; Glucose,Urine (UA) Negative (Negative); Ketones,Urine Negative (Negative); Leukocyte Esterase,Urine Negative (Negative); Mucus,Urine Rare /hpf; Nitrite,Urine Negative (Negative); PH, Urine 6.5 (5.0-8.0); Protein,Urine Negative (Negative); Specific Gravity,Urine 1.006 (1.001-1.035); Urobilinogen,Urine <2.0 mg/dL (<2.0)
[2024-01-07 17:51] VITALS: RESP 16
[2024-01-07 20:44] VITALS: BP 137/86; PULSE 86; TEMP 98.4
== END 2024-01-07 19:07 | disposition home or self-care (01) ==
LOC: EC 14:02
DX: D25.9 Leiomyoma of uterus, unspecified (principal); N83.202 Unspecified ovarian cyst, left side; F17.200 Nicotine dependence, unspecified, uncomplicated; Z88.8 Allergy status to other drugs, medicaments and biological substances
CPT/HCPCS: 36415; 86900; 86901; 80053; 85025; 85610; 85730; 86850; 86870; 86880; 81001; 81025; 76856; 99284; 96365; 96375; J0131; J1885

== ENCOUNTER 2024-01-08 23:49 | Observation (INO) | payer OTHER ==
--- NOTE | 2024-01-08 23:55 | ED ---
Recheck HPI - General Stated Complaint: vaginal bleed Time Seen by Provider: 01/08/24 23:53 Source: RN notes reviewed, old records reviewed Limitations: no limitations - History of Present Illness Initial Comments: Is a 48-year-old female to the ER for evaluation of a syncopal event a syncopal event occurred after having some abdominal cramping and vaginal bleeding known history of uterine fibroid with recent hospital admission and evaluation for significant vaginal bleeding Returns Today for: other (Syncopal event) Symptoms Since Prior Visit: worsening pain (Abdominal cramping) Associated Symptoms: none Treatments Prior to Arrival: other (0) - Related Data Home Medications Medication Instructions Recorded Confirmed Ferrous Sulfate [Feosol] 325 mg PO DAILY 01/03/24 01/03/24 Previous Rx's Medication Instructions Recorded Acetaminophen Oral Susp [Tylenol] 640 mg PO Q4-6H #150 ml 01/07/24 Ibuprofen Oral Susp [Motrin Oral 400 mg PO Q8HR #150 ml 01/07/24 Susp] Allergies Allergy/AdvReac Type Severity Reaction Status Date / Time haloperidol [From Haldol] AdvReac lock jaw, Verified 01/07/24 14:20 confusion Review of Systems ROS Statement: Those systems with pertinent positive or pertinent negative responses have been documented in the HPI. ROS Other: All systems not noted in ROS Statement are negative. Past Medical History Additional Past Medical History / Comment(s): Anemia, endmetrosis History of Any Multi-Drug Resistant Organisms: None Reported Past Surgical History: Section Additional Past Surgical History / Comment(s): c section and hernia repair Past Psychological History: Anxiety, Bipolar Smoking Status: Current every day smoker Past Alcohol Use History: Occasional Past Drug Use History: Cocaine, Marijuana General Exam General appearance: alert, in no apparent distress Head exam: Present: atraumatic, normocephalic, normal inspection Eye exam: Present: normal appearance, PERRL, EOMI. Absent: scleral icterus, conjunctival injection, periorbital swelling ENT exam: Present: normal exam, mucous membranes moist Neck exam: Present: normal inspection. Absent: tenderness, meningismus, lymphadenopathy Respiratory exam: Present: normal lung sounds bilaterally. Absent: respiratory distress, wheezes, rales, rhonchi, stridor Cardiovascular Exam: Present: regular rate, normal rhythm, normal heart sounds. Absent: systolic murmur, diastolic murmur, rubs, gallop, clicks GI/Abdominal exam: Present: soft, normal bowel sounds. Absent: distended, tende rness, guarding, rebound, rigid Extremities exam: Present: normal inspection, full ROM, normal capillary refill. Absent: tenderness, pedal edema, joint swelling, calf tenderness Back exam: Present: normal inspection Neurological exam: Present: alert, oriented X3, CN II-XII intact Psychiatric exam: Present: normal affect, normal mood Skin exam: Present: warm, dry, intact, normal color. Absent: rash Course Vital Signs 01/08/24 23:53 Temperature 98.8 F Pulse Rate 99 Respiratory 18 Rate Blood Pressure 138/99 O2 Sat by Pulse 97 Oximetry - Reevaluation(s) Reevaluation #1: 01/09/24 02:05 Medical records reviewed 5 Reevaluation #2: 01/09/24 02:05 No recurrent syncope or significant hemorrhage here in the ER Reevaluation #3: 01/09/24 02:06 Patient informed of results and questions answered Reevaluation #4: 01/09/24 02:06 Was pt. sent in by a medical professional or institution (, PA, RESEARCH PSYCHOLOGIST, urgent care, hospital, or custodial...) When possible be specific @ -no Did you speak to anyone other than the patient for history (EMS, parent, family, police, friend...)? What history was obtained from this source @ -no Did you review nursing and triage notes (agree or disagree)? Why? @ -agree Are old charts reviewed (outside hosp., previous admission, EMS record, old EKG, old radiological studies, urgent care reports/EKG's, custodial records)? Report findings @ -yes Differential Diagnosis (chest pain, altered mental status, abdominal pain women, abdominal pain men, vaginal bleeding, weakness, fever, dyspnea, syncope, headache, dizziness, GI bleed, back pain, seizure, CVA, palpatations, mental health, musculoskeletal)? @ -prior EKG interpreted by me (3pts min.). @ -yes X-rays interpreted by me (1pt min.). @ -yes negative for acute disease CT interpreted by me (1pt min.). @ -no U/S interpreted by me (1pt. min.). @ -no What testing was considered but not performed or refused? (CT, X-rays, U/S, labs)? Why? @ -none What meds were considered but not given or refused? Why? @ -none Did you discuss the management of the patient with other professionals (christopher irby i.e. , PA, RESEARCH PSYCHOLOGIST, lab, RT, psych nurse, drug abuse social worker, medical staff director, teacher, community chest officer, medical case manager)? Give summary @ -no Was smoking cessation discussed for >3mins.? @ -no Was critical care preformed (if so, how long)? @ -no Were there social determinants of health that impacted care today? How? (Homelessness, low income, unemployed, alcoholism, drug addiction, transportation, low edu. Level, literacy, decrease access to med. care, nursing home, rehab)? @ -none Was there de-escalation of care discussed even if they declined (Discuss DNR or withdrawal of care, Hospice)? DNR status @ -no What co-morbidities impacted this encounter? (DM, HTN, Smoking, COPD, CAD, Cancer, CVA, ARF, Chemo, Hep., AIDS, mental health diagnosis, sleep apnea, morbid obesity)? @ -none Was patient admitted / discharged? Hospital course, mention meds given and route, prescriptions, significant lab abnormalities, going to OR and other pertinent info. @ - Undiagnosed new problem with uncertain prognosis? @ -no Drug Therapy requiring intensive monitoring for toxicity (Heparin, Nitro, Insulin, Cardizem)? @ -no Were any procedures done? @ -no Diagnosis/symptom? @ - Acute, or Chronic, or Acute on Chronic? @ -Acute Uncomplicated (without systemic symptoms) or Complicated (systemic symptoms)? @ -Complicated Side effects of treatment? @ -no Exacerbation, Progression, or Severe Exacerbation? @ -exacerbation Poses a threat to life or bodily function? How? (Chest pain, [place], [place], pneumonia, PE, COPD, DKA, ARF, appy, cholecystitis, CVA, Diverticulitis, Homicidal, Suicidal, threat to staff... and all critical care pts) @ -yes Reevaluation #5: Differential Syncope: Valvular disease, hypertrophic cardiomyopathy, pulmonary embolism, tamponade, tachycardia, bradycardia, [place], hypovolemia, hemorrhage, dissection, anemia, intracranial hemorrhage, seizure, hypoglycemia, carbon monoxide poisoning, this is not meant to be an all-inclusive list. - Consultations Consultation #1: Poke with [facility] who agrees to admit this patient as a readmit Medical Decision Making - Medical Decision Making 8 female to ER with a syncopal event this syncopal event occurred after vaginal bleeding tonight. Patient has a downtrending hemoglobin but not trends fusion really, patient is not hypotensive and will admit for observation of CBC - Lab Data Result diagrams: 01/08/24 23:58 01/08/24 23:58 Lab Results 01/08/24 01/08/24 01/08/24 Range/Units 23:58 23:58 23:58 WBC 6.8 (3.8-10.6) k/uL RBC 4.38 (3.80-5.40) m/uL Hgb 7.6 L (11.4-16.0) gm/dL Hct 28.5 L (34.0-46.0) % MCV 65.1 L (80.0-100.0) fL MCH 17.3 L (25.0-35.0) pg MCHC 26.6 L (31.0-37.0) g/dL RDW 30.2 H (11.5-15.5) % Plt Count 251 (150-450) k/uL MPV 6.7 Neutrophils % 53 % Lymphocytes % 34 % Monocytes % 6 % Eosinophils % 4 % Basophils % 1 % Neutrophils # 3.6 (1.3-7.7) k/uL Lymphocytes # 2.3 (1.0-4.8) k/uL Monocytes # 0.4 (0-1.0) k/uL Eosinophils # 0.3 (0-0.7) k/uL Basophils # 0.0 (0-0.2) k/uL Hypochromasia Marked Poikilocytosis Marked Anisocytosis Marked Microcytosis Marked PT 10.2 (10.0-12.5) sec INR 0.9 (<1.2) APTT 26.3 (22.0-30.0) sec Sodium 136 L (137-145) mmol/L Potassium 4.3 (3.5-5.1) mmol/L Chloride 107 (98-107) mmol/L Carbon Dioxide 22 (22-30) mmol/L Anion Gap 7 mmol/L BUN 15 (7-17) mg/dL Creatinine 0.61 (0.52-1.04) mg/dL Est GFR (CKD-EPI)AfAm >90 (>60 ml/min/1.73 sqM) Est GFR (CKD-EPI)NonAf >90 (>60 ml/min/1.73 sqM) Glucose 86 (74-99) mg/dL Calcium 9.3 (8.4-10.2) mg/dL Phosphorus 4.8 H (2.5-4.5) mg/dL Magnesium 2.1 (1.6-2.3) mg/dL Total Bilirubin 0.4 (0.2-1.3) mg/dL AST 34 (14-36) U/L ALT 18 (4-34) U/L Alkaline Phosphatase 69 (38-126) U/L Total Protein 7.0 (6.3-8.2) g/dL Albumin 4.2 (3.5-5.0) g/dL Critical Care Time Critical Care Time: Yes Total Critical Care Time: 31 Disposition Clinical Impression: Anemia, Uterine fibroid, Syncope Disposition: ADMITTED IP TO THIS [facility] Condition: Fair Is patient prescribed a controlled substance at d/c from ED?: No Referrals: None,Stated [Primary Care Provider] - 1-2 days Time of Disposition: 02:00
[2024-01-09] MEDS: SODIUM CHLORIDE 0.9% 500 ML 500 ML IV STA (00:26)
[2024-01-09 00:36] LABS: Anisocytosis Marked; Basophils % (A) 1 %; Eosinophils # (A) 0.3 k/uL (0-0.7); Eosinophils % (A) 4 %; HCT 28.5 % (34.0-46.0); HGB 7.6 gm/dL (11.4-16.0); Hypochromasia Marked; Lymphocytes # (A) 2.3 k/uL (1.0-4.8); Lymphocytes % (A) 34 %; MCH 17.3 pg (25.0-35.0); MCHC 26.6 g/dL (31.0-37.0); MCV 65.1 fL (80.0-100.0); Mean Platelet Volume 6.7; Microcytosis Marked; Monocytes # (A) 0.4 k/uL (0-1.0); Monocytes % (A) 6 %; Neutrophils # (A) 3.6 k/uL (1.3-7.7); Neutrophils % (A) 53 %; Platelet Count 251 k/uL (150-450); Poikilocytosis Marked; RBC 4.38 m/uL (3.80-5.40); WBC 6.8 k/uL (3.8-10.6)
[2024-01-09 00:37] LABS: ALT 18 U/L (4-34); AST 34 U/L (14-36); African American GFR (CKD) >90 (>60 ml/min/1.73 sqM); Albumin 4.2 g/dL (3.5-5.0); Alkaline Phosphatase 69 U/L (38-126); Anion Gap 7 mmol/L; Blood Urea Nitrogen 15 mg/dL (7-17); Calcium 9.3 mg/dL (8.4-10.2); Carbon Dioxide 22 mmol/L (22-30); Chloride 107 mmol/L (98-107); Glucose 86 mg/dL (74-99); Magnesium 2.1 mg/dL (1.6-2.3); Non-African American GFR(CKD) >90 (>60 ml/min/1.73 sqM); Phosphorus 4.8 mg/dL (2.5-4.5); Potassium 4.3 mmol/L (3.5-5.1); RDW 30.2 % (11.5-15.5); Sodium 136 mmol/L (137-145); Total Bilirubin 0.4 mg/dL (0.2-1.3)
[2024-01-09 00:41] LABS: INR 0.9 (<1.2); Partial Thromboplastin Time 26.3 sec (22.0-30.0); Prothrombin Time 10.2 sec (10.0-12.5)
[2024-01-09] MEDS ORDERED: ONDANSETRON 4 MG/2 ML VIAL IVP PRN (02:04)
[2024-01-09] MEDS ORDERED: NALOXONE 0.4 MG/ML 1 ML VIAL IV PRN ×2 (02:04→08:58)
[2024-01-09] MEDS: SODIUM CHLORIDE 0.9% 1,000 ML IV SCH (03:58)
[2024-01-09] MEDS: KETOROLAC 15 MG/ML 1 ML VIAL IVP STA (04:44)
[2024-01-09] MEDS ORDERED: ACETAMINOPHEN TAB 325 MG TAB PO PRN (08:58)
[2024-01-09] MEDS ORDERED: MAG HYDROX/AL HYDROX/SIMETH 30 ML CUP PO PRN (08:58)
[2024-01-09 10:19] LABS: ALT 15 U/L (4-34); AST 24 U/L (14-36); African American GFR (CKD) >90 (>60 ml/min/1.73 sqM); Albumin 3.5 g/dL (3.5-5.0); Albumin/Globulin Ratio 1.3; Alkaline Phosphatase 65 U/L (38-126); Anion Gap 4 mmol/L; Anisocytosis Marked; Basophils % (A) 1 %; Blood Urea Nitrogen 10 mg/dL (7-17); Calcium 8.7 mg/dL (8.4-10.2); Carbon Dioxide 25 mmol/L (22-30); Chloride 109 mmol/L (98-107); Eosinophils # (A) 0.3 k/uL (0-0.7); Eosinophils % (A) 6 %; Globulin 2.6 g/dL; Glucose 89 mg/dL (74-99); HCT 26.9 % (34.0-46.0); Hypochromasia Marked; Lymphocytes # (A) 1.2 k/uL (1.0-4.8); Lymphocytes % (A) 25 %; MCH 16.8 pg (25.0-35.0); MCHC 24.9 g/dL (31.0-37.0); MCV 67.3 fL (80.0-100.0); Mean Platelet Volume 7.2; Microcytosis Marked; Monocytes # (A) 0.3 k/uL (0-1.0); Monocytes % (A) 7 %; Neutrophils # (A) 2.7 k/uL (1.3-7.7); Neutrophils % (A) 58 %; Non-African American GFR(CKD) >90 (>60 ml/min/1.73 sqM); Platelet Count 232 k/uL (150-450); Poikilocytosis Marked; Potassium 4.1 mmol/L (3.5-5.1); RBC 3.99 m/uL (3.80-5.40); Sodium 138 mmol/L (137-145); Total Bilirubin 0.3 mg/dL (0.2-1.3); Total Protein 6.1 g/dL (6.3-8.2); WBC 4.5 k/uL (3.8-10.6)
[2024-01-09 10:29] LABS: RDW 29.4 % (11.5-15.5)
--- NOTE | 2024-01-09 10:30 | P.HPIM ---
History of Present Illness H&P Date: 01/09/24 History of present illness; patient 48-year-old lady with past medical history significant for dysfunctional bleeding, uterine fibroids, anemia who presented to the ER for 3 syncopal event. Patient has been seen recently in the last few weeks in the ER for heavy uterine bleeding. Patient had received blood transfusions. Patient supposed to follow-up outpatient with gynecology oncology for her uterine fibroids and with hematology. Patient was all right yesterday when she had having heavy vaginal bleeding and following that patient felt as she was going to pass out. Patient was using the restroom at the time. There was no complaint of any palpitations. There is no complaint chest pain. There is no current nausea or vomiting prior to the episode. Patient stated that she saw her LIAISON PLANNER 2 days ago and they told her to follow-up outpatient with Lashawn. Initial lab work done in the ER showed WBC 6.8, hemoglobin 7.6, platelet count 251, sodium 138, potassium 4.3, BUN 15, creatinine 0.61, phosphorus 4.8, AST 34, ALT 18, troponin 0.012 Patient admitted to internal medicine service REVIEW OF SYSTEMS: CONSTITUTIONAL: No fever, complaining of lethargy and weakness HEENT: No recent visual problems or hearing problems. Denied any sore throat. CARDIOVASCULAR: No chest pain, orthopnea, PND, no palpitations, no syncope. PULMONARY: No shortness of breath, no cough, no hemoptysis. GASTROINTESTINAL: No diarrhea, no nausea, no vomiting, no abdominal pain. NEUROLOGICAL: No headaches, no weakness, no numbness. HEMATOLOGICAL: Denies any bleeding or petechiae. GENITOURINARY: Denies any burning micturition, frequency, or urgency. MUSCULOSKELETAL/RHEUMATOLOGICAL: Denies any joint pain, swelling, or any muscle pain. ENDOCRINE: Denies any polyuria or polydipsia. The rest of the 14-point review of systems is negative. PHYSICAL EXAMINATION: GENERAL: The patient is alert and oriented x3, not in any acute distress. Well developed, well nourished. HEENT: Pupils are round and equally reacting to light. EOMI. No scleral icterus. No conjunctival pallor. Normocephalic, atraumatic. No pharyngeal erythema. No thyromegaly. CARDIOVASCULAR: S1 and S2 present. No murmurs, rubs, or gallops. PULMONARY: Chest is clear to auscultation, no wheezing or crackles. ABDOMEN: Soft, nontender, nondistended, normoactive bowel sounds. No palpable organomegaly. MUSCULOSKELETAL: No joint swelling or deformity. EXTREMITIES: No cyanosis, clubbing, or pedal edema. NEUROLOGICAL: Gross neurological examination did not reveal any focal deficits. SKIN: No rashes. Assessment and plan presyncope Acute blood loss anemia Dysfunction uterine bleeding Uterine fibroids Monitor vital signs Monitor CBC Monitor CMP Continue IV fluids Monitor H&H, if hemoglobin less than 7 will transfuse 1 of packed red blood cell Continue antiemetics continue pain management Consult LIAISON PLANNER Labs and medication were reviewed.. Continue same treatment. Continue with symptomatic treatment. Resume home medication. Monitor labs and vitals. DVT and GI prophylaxis. Further recommendations as per clinical course of the patient Dictation was produced using [employer] dictation software. please excuse any grammatical, word or spelling errors. Past Medical History Past Medical History: Asthma, Hypertension Additional Past Medical History / Comment(s): Anemia, endmetrosis History of Any Multi-Drug Resistant Organisms: None Reported Past Surgical History: Section Additional Past Surgical History / Comment(s): c section and hernia repair Past Psychological History: Anxiety, Bipolar Smoking Status: Current every day smoker Past Alcohol Use History: Occasional Past Drug Use History: Cocaine, Marijuana Medications and Allergies Home Medications Medication Instructions Recorded Confirmed Type Ferrous Sulfate [Feosol] 325 mg PO DAILY 01/03/24 01/03/24 History Acetaminophen Oral Susp [Tylenol] 640 mg PO Q4-6H #150 ml 01/07/24 Rx Ibuprofen Oral Susp [Motrin Oral 400 mg PO Q8HR #150 ml 01/07/24 Rx Susp] Allergies Allergy/AdvReac Type Severity Reaction Status Date / Time haloperidol [From Haldol] AdvReac lock jaw, Verified 01/07/24 14:20 confusion Physical Exam Vitals: Vital Signs Temp Pulse Pulse Resp BP BP Pulse Ox 01/09/24 07:47 98.2 F 68 14 127/82 99 01/09/24 04:46 92 20 123/76 100 01/08/24 23:53 98.8 F 99 18 138/99 97 Intake and Output 01/08/24 01/09/24 01/09/24 22:59 06:59 14:59 Other: Weight 57.153 kg Results CBC & Chem 7: 01/08/24 23:58 01/09/24 09:30 Labs: Abnormal Lab Results - Last 24 Hours (Table) 01/08/24 01/08/24 Range/Units 23:58 23:58 Hgb 7.6 L (11.4-16.0) gm/dL Hct 28.5 L (34.0-46.0) % MCV 65.1 L (80.0-100.0) fL MCH 17.3 L (25.0-35.0) pg MCHC 26.6 L (31.0-37.0) g/dL RDW 30.2 H (11.5-15.5) % Sodium 136 L (137-145) mmol/L Phosphorus 4.8 H (2.5-4.5) mg/dL Thrombosis Risk Factor Assmnt - Choose All That Apply Any of the Below Risk Factors Present?: Yes Each Factor Represents 1 point: Age 41-60 years Thrombosis Risk Factor Assessment Total Risk Factor Score: 1 Thrombosis Risk Factor Assessment Level: Low Risk
[2024-01-09 10:31] LABS: HGB 6.7 gm/dL (11.4-16.0)
[2024-01-09 11:34] LABS: RBC Fragments Present; Tear Drop Cells Present
[2024-01-09 12:29] VITALS: BMI 21.6
[2024-01-09] MEDS: ACETAMINOPHEN IV (For NPO) 1,000 MG in EMPTY BAG 1 BAG IVPB ONE (12:29)
[2024-01-09] MEDS: ACETAMINOPHEN ORAL SUSP 160 MG/5 ML CUP PO PRN (19:07)
[2024-01-10 01:24] LABS: Anisocytosis Marked; Basophils % (A) 1 %; Eosinophils # (A) 0.3 k/uL (0-0.7); Eosinophils % (A) 6 %; HGB 7.7 gm/dL (11.4-16.0); Hypochromasia Marked; Lymphocytes # (A) 1.9 k/uL (1.0-4.8); Lymphocytes % (A) 35 %; MCH 18.2 pg (25.0-35.0); MCHC 27.5 g/dL (31.0-37.0); MCV 66.3 fL (80.0-100.0); Mean Platelet Volume 6.5; Microcytosis Marked; Monocytes # (A) 0.3 k/uL (0-1.0); Monocytes % (A) 6 %; Neutrophils # (A) 2.7 k/uL (1.3-7.7); Neutrophils % (A) 50 %; Platelet Count 244 k/uL (150-450); Poikilocytosis Marked; RBC 4.22 m/uL (3.80-5.40); WBC 5.4 k/uL (3.8-10.6)
[2024-01-10 02:18] LABS: RDW 28.1 % (11.5-15.5)
--- NOTE | 2024-01-10 09:41 | P.OBCN ---
History of Present Illness Consult date: 01/10/24 Reason for consult: menorrhagia Chief complaint: Heavy vaginal bleeding, passing out History of present illness: Ms. Lieberman is a 48 year old with a history of abnormal uterine bleeding and fibroids who presented to the ER yesterday after a syncopal episode at home secondary to heavy vaginal bleeding. Upon arrival to the ER, her hemoblogin was 7.6 and then dropped down to 6.4, which prompted a blood tranfusion of 1 unit of packed red blood cells. The patient has been evaluated in the office by Dr. Valencia, who found a complex ovarian cyst along with an enlarged fibroid uterus. Due to the complex cyst, the patient has been referred to Dr. Mcclain with [facility] for surgical management. The patient has an appointment to be seen with Dr. Mcclain January 17. The patient does feel overnight that her bleeding has lessened, but she is still passing large clots and changing depends diapers every 2 hours that are fully saturated. The patient notes that she has been experiencing dysphagia, with difficulty swallowing bites of food and that they just get stuck in her throat until she takes a large drink of fluid. She cannot swallow pills for this reason. OBGYN history: the patient endorses monthly menses that are very heavy, painful, and long. This month the patient has had 2 menstrual periods, which is not normal for her Past medical history: hypertension and anemia Medications: ferrous sulfate Past surgical history: 5 c-sections, hernia repair Social history: former cocaine use, currently at [facility] in rehabilitation. Former occassional alcohol use. 2 cigarettes smoked daily. Past Medical History Past Medical History: Asthma, Hypertension Additional Past Medical History / Comment(s): Anemia, endmetrosis History of Any Multi-Drug Resistant Organisms: None Reported Past Surgical History: Section Additional Past Surgical History / Comment(s): c section and hernia repair Past Psychological History: Anxiety, Bipolar Smoking Status: Current every day smoker Past Alcohol Use History: Occasional Past Drug Use History: Cocaine, Marijuana Medications and Allergies Home Medications Medication Instructions Recorded Confirmed Type Ferrous Sulfate [Feosol] 325 mg PO DAILY 01/03/24 01/09/24 History Acetaminophen Oral Susp [Tylenol] 640 mg PO Q4-6H #150 ml 01/07/24 01/09/24 Rx Ibuprofen Oral Susp [Motrin Oral 400 mg PO Q8HR #150 ml 01/07/24 01/09/24 Rx Susp] Allergies Allergy/AdvReac Type Severity Reaction Status Date / Time haloperidol [From Haldol] AdvReac lock jaw, Verified 01/09/24 10:46 confusion Exam Vital Signs Temp Pulse Pulse Resp BP BP Pulse Ox 01/10/24 08:05 98 F 78 16 151/90 100 01/10/24 06:19 77 18 140/98 100 01/10/24 04:44 87 16 158/94 100 01/10/24 01:10 92 18 132/80 100 01/10/24 01:03 92 16 99 01/09/24 22:49 88 18 175/94 100 01/09/24 18:16 98 F 94 14 145/91 01/09/24 17:56 98.5 F 96 14 138/77 99 01/09/24 15:00 97.8 F 14 128/66 98 01/09/24 14:00 14 Intake and Output 01/09/24 01/10/24 01/10/24 22:59 06:59 14:59 Intake Total 292 Balance 292 Intake: Blood Product 292 Rc Pheresis As-3 Unit 292 [id number] Focused physical exam is performed. This is a healthy-appearing female in no apparent distress. Breathing is non-labored. Abdomen is soft, non-tender, non- distended. Speculum exam is not tolerated well. Bimanual exam reveals an 18-week sized, bulky fibroid uterus. No adnexal masses appreciated. Extremities are non- tender and non-edematous. Results Result Diagrams: 01/10/24 01:01 01/09/24 09:30 Abnormal Lab Results - Last 24 Hours (Table) 01/09/24 01/09/24 01/09/24 Range/Units 09:30 09:30 12:13 Hgb 6.7 L* (11.4-16.0) gm/dL Hct 26.9 L (34.0-46.0) % MCV 67.3 L (80.0-100.0) fL MCH 16.8 L (25.0-35.0) pg MCHC 24.9 L (31.0-37.0) g/dL RDW 29.4 H (11.5-15.5) % Chloride 109 H (98-107) mmol/L Total Protein 6.1 L (6.3-8.2) g/dL Crossmatch See Detail 01/10/24 Range/Units 01:01 Hgb 7.7 L (11.4-16.0) gm/dL Hct 28.0 L (34.0-46.0) % MCV 66.3 L (80.0-100.0) fL MCH 18.2 L (25.0-35.0) pg MCHC 27.5 L (31.0-37.0) g/dL RDW 28.1 H (11.5-15.5) % Chloride (98-107) mmol/L Total Protein (6.3-8.2) g/dL Crossmatch Assessment and Plan Assessment: 48 year old with AUB-L admitted for symptomatic anemia after syncopal episode Plan: 1. AUB-L. Patient unable to swallow pills. Will order IV TXA for management of acute bleeding. 2. Dysmenorrhea. Will add on Toradol prn pain. Dispo: tranfuse for hgb <7. TXA for treatment of acute bleeding. Pt scheduled to see [facility] for surgical consultation 01/17. Time with Patient: Less than 30 (35 minutes)
[2024-01-10] MEDS: ACETAMINOPHEN ORAL SUSP (PEDS) 3,840 MG/120 ML BOTTLE PO PRN (10:22)
[2024-01-10] MEDS: FERROUS SULFATE 325 MG TAB PO SCH (10:22)
[2024-01-10] MEDS: TRANEXAMIC 1,000 MG/100ML-NACL 1,000 MG in SALINE 1 100ML.BAG IVPB ONE (10:22)
[2024-01-10 11:23] LABS: Anisocytosis (M) 3+; Basophils # (A) 0.04 X 10*3/uL (0.00-0.10); Basophils % (A) 0.8 %; Elliptocytes 2+; Eosinophils # (A) 0.32 X 10*3/uL (0.04-0.35); Eosinophils % (A) 6.5 %; HCT 26.1 % (37.2-46.3); HGB 7.3 g/dL (12.0-15.0); Hypochromasia (M) 3+; Lymphocytes # (A) 1.62 X 10*3/uL (0.90-5.00); Lymphocytes % (A) 33.1 %; MCH 18.5 pg (27.0-32.0); MCV 66.1 FL (80.0-97.0); Microcytosis (M) 3+; Monocytes # (A) 0.38 X 10*3/uL (0.20-1.00); Monocytes % (A) 7.8 %; NRBC Per 100 WBC 0 X 10*3/uL (0.00-0.01); Neutrophils # (A) 2.52 X 10*3/uL (1.80-7.70); Neutrophils % (A) 51.6 %; Platelet Count 231 X 10*3/uL (140-440); RBC 3.95 X 10*6/uL (4.10-5.20); RDW 31.3 % (11.5-14.5); Schistocytes 1+; WBC 4.89 X 10*3/uL (4.50-10.00)
--- NOTE | 2024-01-10 13:43 | P.PN ---
Subjective Progress Note Date: 01/10/24 patient 48-year-old lady with past medical history significant for dysfunctional bleeding, uterine fibroids, anemia who presented to the ER for 3 syncopal event. Patient has been seen recently in the last few weeks in the ER for heavy uterine bleeding. Patient had received blood transfusions. Patient supposed to follow-up outpatient with gynecology oncology for her uterine fibroids and with hematology. Patient was all right yesterday when she had having heavy vaginal bleeding and following that patient felt as she was going to pass out. Patient was using the restroom at the time. There was no complaint of any palpitations. There is no complaint chest pain. There is no current nausea or vomiting prior to the episode. Patient stated that she saw her [employer] OPERATOR 2 days ago and they told her to follow-up outpatient with Lashawn. Initial lab work done in the ER showed WBC 6.8, hemoglobin 7.6, platelet count 251, sodium 138, potassium 4.3, BUN 15, creatinine 0.61, phosphorus 4.8, AST 34, ALT 18, troponin 0.012 Patient admitted to internal medicine service 01/09. Patient seen and examined. Patient received 1 unit of packed red blood cells yesterday. Currently hemoglobin 7.7. REVIEW OF SYSTEMS: CONSTITUTIONAL: No fever, no malaise,. CARDIOVASCULAR: No chest pain, no palpitations, no syncope. PULMONARY: No shortness of breath, no cough, GASTROINTESTINAL: No diarrhea, no nausea, no vomiting, no abdominal pain. NEUROLOGICAL: No headaches, no weakness, PHYSICAL EXAMINATION: GENERAL: The patient is alert and oriented x3, not in any acute distress. Well developed, well nourished. HEENT: Pupils are round and equally reacting to light. EOMI. No scleral icterus. No conjunctival pallor. Normocephalic, atraumatic. No pharyngeal erythema. No thyromegaly. CARDIOVASCULAR: S1 and S2 present. No murmurs, rubs, or gallops. PULMONARY: Chest is clear to auscultation, no wheezing or crackles. ABDOMEN: Soft, nontender, nondistended, normoactive bowel sounds. No palpable organomegaly. MUSCULOSKELETAL: No joint swelling or deformity. EXTREMITIES: No cyanosis, clubbing, or pedal edema. NEUROLOGICAL: Gross neurological examination did not reveal any focal deficits. SKIN: No rashes. Assessment and plan presyncope Acute blood loss anemia Dysfunction uterine bleeding Uterine fibroids Monitor vital signs Monitor CBC Monitor CMP Continue IV fluids Monitor H&H, if hemoglobin less than 7 will transfuse 1 of packed red blood cell Continue antiemetics continue pain management [employer] OPERATOR following, order IV TXA for management of acute bleeding Labs and medication were reviewed.. Continue same treatment. Continue with symptomatic treatment. Resume home medication. Monitor labs and vitals. DVT and GI prophylaxis. Further recommendations as per clinical course of the papito vincent Dictation was produced using [employer] dictation software. please excuse any grammatical, word or spelling errors. Objective - Vital Signs Vital signs: Vital Signs Temp 98 F 01/10/24 08:05 Pulse 78 01/10/24 08:05 Resp 16 01/10/24 08:05 BP 151/90 01/10/24 08:05 Pulse Ox 100 01/10/24 08:05 FiO2 Intake & Output 01/09/24 01/10/24 01/10/24 18:59 06:59 18:59 Intake Total 400 292 Balance 400 292 Weight 57.153 kg Intake: Intake, IV Titration 400 Amount ACETAMINOPHEN IV (For NPO 100 ) 1,000 mg In Empty Bag 1 bag @ 400 mls/hr IVPB ONCE ONE Rx#:[id number] Sodium Chloride 0.9% 1, 300 000 ml @ 75 mls/hr IV . [id number] [facility] Rx#:[id number] Blood Product 0 292 Rc Pheresis As-3 Unit 0 292 [id number] - Labs CBC & Chem 7: 01/10/24 05:51 01/09/24 09:30 Labs: Abnormal Lab Results - Last 24 Hours (Table) 01/09/24 01/09/24 01/09/24 Range/Units 09:30 09:30 12:13 Hgb 6.7 L* (11.4-16.0) gm/dL Hct 26.9 L (34.0-46.0) % MCV 67.3 L (80.0-100.0) fL MCH 16.8 L (25.0-35.0) pg MCHC 24.9 L (31.0-37.0) g/dL RDW 29.4 H (11.5-15.5) % Chloride 109 H (98-107) mmol/L Total Protein 6.1 L (6.3-8.2) g/dL Crossmatch See Detail 01/10/24 Range/Units 01:01 Hgb 7.7 L (11.4-16.0) gm/dL Hct 28.0 L (34.0-46.0) % MCV 66.3 L (80.0-100.0) fL MCH 18.2 L (25.0-35.0) pg MCHC 27.5 L (31.0-37.0) g/dL RDW 28.1 H (11.5-15.5) % Chloride (98-107) mmol/L Total Protein (6.3-8.2) g/dL Crossmatch
[2024-01-10] MEDS: KETOROLAC 15 MG/ML 1 ML VIAL IVP PRN (14:14)
--- NOTE | 2024-01-11 13:24 | P.PN ---
Progress Note - Text Progress Note Date: 01/11/24 Patient states she is feeling well this am, bleeding has slowed. she denies any current concerns HGB stable this am. she states she feels like she will be able to make it to her appointment in 1 week. She is is being discharged from [facility] and has a ride to the appointment through her insurance. VSS in general she appears well in general talking on the phone upon entry to the room, A Heavy menstrual bleeding anemia uterine fibroids complex ovarian cyst P stable for discharge home from nurse gynecology perspective. she has appointment with nurse gynecology onc for surgical managment of uterine fibroids and complex ovarian cyst. questions answered and she states understanding of the plan and feels comfortable going home.
[2024-01-11 14:36] LABS: Anisocytosis Marked; HCT 29.6 % (34.0-46.0); HGB 7.9 gm/dL (11.4-16.0); Hypochromasia Marked; MCH 18.5 pg (25.0-35.0); MCHC 26.8 g/dL (31.0-37.0); Mean Platelet Volume 6.6; Microcytosis Marked; Platelet Count 265 k/uL (150-450); Poikilocytosis Marked; RBC 4.29 m/uL (3.80-5.40); WBC 6.1 k/uL (3.8-10.6)
[2024-01-11 15:07] LABS: RDW 28.1 % (11.5-15.5)
[2024-01-11] MEDS: SODIUM FERRIC GLUCONAT-SUCROSE 125 MG in SODIUM CHLORIDE 0.9% 100 ML IVPB SCH (16:22)
[2024-01-11 16:32] LABS: Eosinophils # (M) 0.12 k/uL (0-0.7); Monocytes # (M) 0.49 k/uL (0-1.0); Neutrophils # (M) 4.09 k/uL (1.3-7.7); Neutrophils % (M) 67 %; Nucleated Red Blood Cells 0 /100 WBC (0-0); Polychromasia Present; RBC Fragments Present; Total Cells Counted 100
[2024-01-11] MEDS: metroNIDAZOLE 500 MG TAB PO STA (21:05)
--- NOTE | 2024-01-11 22:48 | PN ---
PROGRESS NOTE DATE OF SERVICE: 01/11/2024 SUBJECTIVE: This is a 48-year-old woman, who was admitted with blood loss anemia and presyncope, is being closely monitored at this time. FIELD SERVICE CONSULTANT has recommended outpatient followup and management of uterine fibroids, but apparently the patient is complaining of vaginal bleeding this morning. Hemoglobin is borderline at 7.3 yesterday. Today's labs are not available. OBJECTIVE: VITAL SIGNS: Pulse is 86, blood pressure 166/97, respirations 16. CHEST: Clear to auscultation. HEENT: Conjunctivae pale. CARDIOVASCULAR: S1, S2. ABDOMEN: Soft. LABORATORY DATA: Not available. ASSESSMENT: 1. Presyncope. 2. Blood loss anemia, possible dysfunctional uterine bleeding. 3. Uterine fibroids. RECOMMENDATIONS: Recommend to continue current medications, continue symptomatic treatment. We will monitor CBC closely. Otherwise, guarded prognosis because of multiple complex medical issues and further recommendations to follow. MMODL / IJN: [id number] /
[2024-01-12 08:11] VITALS: BP 139/78; PULSE 87; TEMP 98.3
[2024-01-12 10:37] VITALS: RESP 16
[2024-01-12 10:45] LABS: BUN/Creat Ratio 11.71 Ratio (12.00-20.00); Blood Urea Nitrogen 8.2 mg/dL (9.0-27.0); Calcium 8.8 mg/dL (8.7-10.3); Chloride 103 mmol/L (96-109); Glucose 106 mg/dL (70-110); Potassium 4.2 mmol/L (3.5-5.5); Sodium 137 mmol/L (135-145)
[2024-01-12 11:27] LABS: Anisocytosis (M) 3+; Basophils # (A) 0.04 X 10*3/uL (0.00-0.10); Basophils % (A) 0.7 %; Elliptocytes 2+; Eosinophils # (A) 0.19 X 10*3/uL (0.04-0.35); Eosinophils % (A) 3.2 %; HGB 7.7 g/dL (12.0-15.0); Hypochromasia (M) 3+; Lymphocytes # (A) 1.57 X 10*3/uL (0.90-5.00); Lymphocytes % (A) 26.7 %; MCH 18.5 pg (27.0-32.0); MCHC 27.5 g/dL (32.0-37.0); MCV 67.1 FL (80.0-97.0); Microcytosis (M) 3+; Monocytes # (A) 0.44 X 10*3/uL (0.20-1.00); Monocytes % (A) 7.5 %; NRBC Per 100 WBC 0 X 10*3/uL (0.00-0.01); Neutrophils # (A) 3.61 X 10*3/uL (1.80-7.70); Neutrophils % (A) 61.4 %; Platelet Count 306 X 10*3/uL (140-440); RBC 4.17 X 10*6/uL (4.10-5.20); RDW 32.2 % (11.5-14.5); Schistocytes 1+; WBC 5.88 X 10*3/uL (4.50-10.00)
--- NOTE | 2024-01-12 16:03 | P.DS ---
Providers Date of admission: 01/09/24 02:04 Expected date of discharge: 01/12/24 Attending physician: Kelsey Coffey Consults: 01/09/24 09:01 Consult Physician Routine Consulting Provider: Tigre Mcwilliams Reason/Comments: Dysfunctional uterine bleeding, uterine fibroid Do you want consulting provider notified?: Yes Primary care physician: Stated None Hospital Course: Final diagnosis Presyncope, likely secondary to acute blood loss anemia from dysfunctional uterine bleeding Acute blood loss anemia secondary to dysfunctional uterine bleeding with uterine fibroids History of asthma, not in exacerbation Hypertension history History of anemia with endometriosis History of anxiety/bipolar Continued ongoing nicotine dependence GI prophylaxis DVT prophylaxis Full code Discharge disposition Patient is being discharged in a stable condition with guarded prognosis to [facility]. Patient expected to complete [facility] inpatient rehab on . Patient will follow-up with gynecology outpatient at [facility] in the outpatient setting upon discharge as scheduled on January 17. Patient is to continue with daily iron supplementation. Total time taken is greater than 35 minutes. Hospital course This is a 48-year-old female who was recently admitted with increased vaginal bleeding with concerns of anemia and syncopal episode. Patient evaluated by gynecology recommending further evaluation in the outpatient setting and has a scheduled appointment on January 17 at [facility] for possible surgical intervention. Patient was presently at [facility] rehab and expected to finish on this week. Patient will return there and also recommend outpatient follow-up with primary care provider. Patient is status post 2 IV infusions of iron and will continue on a daily supplement with outpatient follow-up and repeat labs. Hemoglobin is 7.7 with no active bleeding noted. Other labs reviewed and within normal limits. Patient cleared for discharge. Please refer to other consultation notes for further HPI. Patient reports to feeling well and would like to go home. Currently no reports of chest pain, shortness of breath, or palpitations. Patient is afebrile. No reports of nausea or vomiting and patient is tolerating diet. Patient will be discharged today. Physical exam: Gen: This is a 48-year-old female who is awake, alert and oriented x 3, well- developed, well-nourished HEENT: Head is atraumatic, normocephalic. Pupils equal, round. Sclerae is anicteric. NECK: Supple. No JVD. No lymphadenopathy. No thyromegaly. LUNGS: Clear to auscultation. No wheezes or rhonchi. No intercostal retractions. HEART: Regular rate and rhythm. No murmur. ABDOMEN: Soft. Bowel sounds are present. No masses. No tenderness. EXTREMITIES: No pedal edema. No calf tenderness. NEUROLOGICAL: Patient is awake, alert and oriented x3. Cranial nerves 2 through 12 are grossly intact. Please refer to medication reconciliation sheet for a list of medications. The impression and plan of care has been dictated by Cassie Montague, Nurse Practitioner as directed. Dr. Alexx MD I have performed a history and examination and MDM of this patient, discussed the same with the dictator, and agree with the dictator's assessment and plan as written ,documented as a scribe. Based on total visit time, I have performed more than 50% of the visit. Patient Condition at Discharge: Fair Plan - Discharge Summary Discharge Rx Participant: Yes New Discharge Prescriptions: Continue Acetaminophen Oral Susp [Tylenol] 640 mg PO Q4-6H #150 ml Ferrous Sulfate [Iron (65 MG Elemental)] 325 mg PO DAILY Ibuprofen Oral Susp [Motrin Oral Susp] 400 mg PO Q8HR #150 ml Discharge Medication List Ferrous Sulfate [Iron (65 MG Elemental)] 325 mg PO DAILY 01/03/24 [History] Acetaminophen Oral Susp [Tylenol] 640 mg PO Q4-6H #150 ml 01/07/24 [Rx] Ibuprofen Oral Susp [Motrin Oral Susp] 400 mg PO Q8HR #150 ml 01/07/24 [Rx] Follow up Appointment(s)/Referral(s): [facility] [Outside] - As Needed Patient Instructions/Handouts: Uterine Fibroids (GEN), Iron Rich Diet (DC) Activity/Diet/Wound Care/Special Instructions: Activity as tolerated and patient returning to [facility] Follow-up with primary care provider Follow-up with [facility] outpatient Follow-up after appointment with Lashawn on January 17 as scheduled Continue taking daily iron Discharge Disposition: HOME SELF-CARE
== END 2024-01-12 15:33 | disposition home or self-care (01) ==
LOC: EC 23:49 → 6NMEDSUR 01-09 02:04
PROVIDERS: ADMIT Hospitalist; ATTEND Hospitalist
DX: R55 Syncope and collapse (principal); D62 Acute posthemorrhagic anemia; D25.9 Leiomyoma of uterus, unspecified; N93.9 Abnormal uterine and vaginal bleeding, unspecified; N83.299 Other ovarian cyst, unspecified side; N94.6 Dysmenorrhea, unspecified; I10 Essential (primary) hypertension; F31.9 Bipolar disorder, unspecified; F41.9 Anxiety disorder, unspecified; J45.909 Unspecified asthma, uncomplicated; N80.9 Endometriosis, unspecified; F17.210 Nicotine dependence, cigarettes, uncomplicated
CPT/HCPCS: 96376 ×3; 96361 ×4; 96366; 96367; 36430; 96365; 96375; 99291; 36415; 86900; 86901; 86902; 80053; 80048; 83735; 84100; 84484; 85025 ×4; 85610; 85730; 86850; 86920; 86870; 86880; G0378 ×4; P9016; J2916 ×2; J0131; J1885 ×4